=== PATIENT | female | born 1985 | race Caucasian/White ===

== ENCOUNTER 2019-02-18 19:03 | Emergency (ER) | payer SELFPAY ==
[2019-02-18 19:32] VITALS: BP 114/69
[2019-02-18] MEDS ORDERED: Acetaminophen TAB* 325 MG PO ONE (19:36)
--- NOTE | 2019-02-18 20:27 | UC ---
General HPI - HPI Summary HPI Summary: per hand assembler " WOKE UP TODAY W/ UPPER BACK PAIN, SORE THROAT, BODYACHE/CHILLS. TOOK 600MG TODAY AM AND AT 1230 W/ FEVER-RELEIF. " -no cough or congestion. some swollen glands. sx started today, no known sick contacts - History of Current Complaint Chief Complaint: UCRespiratory Stated Complaint: ST,CHILLS,FEVER(104.7),BODY ACHES,NAUSEA,SOB Time Seen by Provider: 02/18/19 20:16 Hx Last Menstrual Period: 02/15/19 Pain Intensity: 10 - Allergy/Home Medications Allergies/Adverse Reactions: Allergies Allergy/AdvReac Type Severity Reaction Status Date / Time No Known Allergies Allergy Verified 02/18/19 19:25 Home Medications: Home Medications Anxiety/Depression Med 1 tab DAILY 02/18/19 [History Confirmed 02/18/19] PMH/Surg Hx/FS Hx/Imm Hx Psychological History: Anxiety - Surgical History Surgical History: Yes Surgery Procedure, Year, and Place: C SECTION - Social History Alcohol Use: Occasionally Substance Use Type: None Smoking Status (MU): Never Smoked Tobacco Review of Systems All Other Systems Reviewed And Are Negative: Yes Constitutional: Positive: Fever, Chills, Fatigue Skin: Negative: Rash Eyes: Positive: Negative ENT: Positive: Sore Throat. Negative: Nasal Discharge, Sinus Congestion, Sinus Pain/Tenderness Respiratory: Positive: Negative. Negative: Shortness Of Breath, Cough Cardiovascular: Positive: Negative Gastrointestinal: Positive: Negative Genitourinary: Positive: Negative Motor: Positive: Negative Neurovascular: Positive: Negative Musculoskeletal: Positive: Negative Neurological: Positive: Negative Psychological: Positive: Negative Is Patient Immunocompromised?: No Physical Exam Triage Information Reviewed: Yes Appearance: Well-Appearing, No Pain Distress, Well-Nourished Vital Signs: Initial Vital Signs Temp 99.4 F 02/18/19 19:26 Pulse 112 02/18/19 19:26 Resp 16 02/18/19 19:26 BP 114/69 02/18/19 19:26 Pulse Ox 100 02/18/19 19:26 Vital Signs Reviewed: Yes Eye Exam: Normal ENT: Positive: Pharyngeal erythema, Tonsillar exudate, Uvula midline. Negative : Nasal congestion, Nasal drainage, Hoarse voice, Sinus tenderness Dental Exam: Normal Neck exam: Normal Neck: Positive: Supple, Nontender, Enlarged Nodes @ - mild b/l ant cx w/ tenderness Respiratory Exam: Normal Respiratory: Positive: Chest non-tender, Lungs clear, Normal breath sounds, No respiratory distress, No accessory muscle use. Negative: Crackles, Rhonchi, Stridor, Wheezing Cardiovascular Exam: Normal Cardiovascular: Positive: RRR Abdominal Exam: Normal Abdomen Description: Positive: Nontender, Soft Musculoskeletal Exam: Normal Neurological Exam: Normal Psychological Exam: Normal Skin Exam: Normal Course/Dx - Course Course Of Treatment: rapid strep postive. LAILA prn pain -amox 875mgs po BID x 10 d -probiotic - Differential Dx - Multi-Symptom Differential Diagnoses: Other - Diagnoses Provider Diagnosis: Strep pharyngitis Discharge - Sign-Out/Discharge Documenting (check all that apply): Patient Departure All imaging exams completed and their final reports reviewed: No Studies - Discharge Plan Condition: Stable Disposition: HOME Prescriptions: Amoxicillin PO (*) [Amoxicillin 875 MG (*)] 875 mg PO BID #20 tab Patient Education Materials: Strep Throat (ED) Referrals: Iris Cabrales MD [Primary Care Provider] - 1 Week Additional Instructions: -Make sure to take a probiotic daily while on antibiotics to help prevent a potential complication of antibiotic use called c diff. Some well known brands that can be found OTC are floraAircuityor, Parsimotion and Twistle. Make sure to complete the entire prescription unless advised otherwise by your health care provider. - Billing Disposition and Condition Condition: STABLE Disposition: Home
== END 2019-02-18 20:41 | disposition home or self-care (01) ==
LOC: UCCORT 19:03
DX: J02.0 Streptococcal pharyngitis (principal); B95.0 Streptococcus, group A, as the cause of diseases classified elsewhere
CPT/HCPCS: 87651; 99202; A9270-GY; G0463